=== PATIENT | female | born 1990 ===

== ENCOUNTER 2020-02-19 14:17 | Emergency (ER) | payer SELFPAY | END 2020-02-19 14:56 | disposition left against medical advice (07) | LOC: ER 14:17 | DX: Z53.21 Procedure and treatment not carried out due to patient leaving prior to being seen by health care provider (principal) ==

== ENCOUNTER → 2020-12-27 | Outpatient (CLI) | payer OTHER ==
[2020-12-29 22:08] LABS: CHLAMYDIA TRACHOMATIS, NAA Negative (Negative)
== END | disposition home or self-care (01) ==
LOC: LAB 12:54 → LAB SHORT 12:54
PROVIDERS: Physician Assistant Medical
DX: N75.0 Cyst of Bartholin's gland (principal); Z72.51 High risk heterosexual behavior
CPT/HCPCS: 87070; 87075; 87205; 87491; 87591